=== PATIENT | male | born 1965 | race Caucasian/White ===

== ENCOUNTER 2022-09-05 17:23 | Emergency (ER) | payer MEDICAID ==
[~2022-09-05] VITALS: Ht 162.6 cm; Wt 85.0 kg
[~2022-09-05 17:23] MED LIST: LACT10SO81 MT
[2022-09-05 18:45] LABS: BASOPHILS % 1.4 % (0.0-2.0); EOSINOPHILS % 0.7 % (0.0-5.0); HEMATOCRIT. 38.4 % (42.0-52.0); HEMOGLOBIN. 12.8 g/dL (14.0-18.0); LYMPHOCYTES % 11.8 % (20.0-50.0); MEAN CORPUSCULAR HEMOGLOBIN 27.3 pg (28.0-32.0); MEAN CORPUSCULAR VOLUME 82.2 fL (80.0-94.0); MONOCYTES % 13.8 % (2.0-8.0); NEUTROPHILS % 72.3 % (40.0-76.0); PLATELET 186 x1000/uL (130-400); RED BLOOD CELL COUNT 4.67 mill/uL (4.7-6.1); RED CELL DISTRIBUTION WIDTH 20.2 % (11.6-14.6)
[2022-09-05] MEDS ORDERED: METHOCARBAMOL 500MG TABLET PO ONE (18:45)
[2022-09-05] MEDS ORDERED: KETOROLAC 30MG/ML VIAL IM ONE (18:45)
[2022-09-05 18:50] LABS: CHLORIDE 104 mEq/L (98-107)
[2022-09-05 19:05] LABS: INR 1.3; PROTHROMBIN TIME 14.2 sec (9.6-11.0)
[2022-09-05 19:38] VITALS: BP 111/86
[2022-09-05] MEDS ORDERED: IBUP-2028 MT (22:15)
[2022-09-05 23:41] LABS: CLARITY URINE CLOUDY (CLEAR); COLOR URINE DARK YELLOW (YELLOW); KETONES URINE TRACE (NEGATIVE); LEUKOCYTE ESTERASE URINE TRACE (NEGATIVE); NITRITE URINE POSITIVE (NEGATIVE); OCCULT BLOOD URINE 1+ (NEGATIVE); PH URINE 5.5 (4.5-8.0); PROTEIN URINE 1+ (NEGATIVE); SPECIFIC GRAVITY URINE 1.032 (1.005-1.030)
== END 2022-09-06 02:00 | disposition home or self-care (01) ==
LOC: ER 17:23
DX: M54.50 Low back pain, unspecified (principal)
CPT/HCPCS: 36415; 72131; 80053; 81003; 83690; 85025; 85610; 96372; 99285; J1885